=== PATIENT | female | born 1995 | race Caucasian/White ===

== ENCOUNTER 2021-06-19 10:12 | Inpatient (IN) | payer OTHER ==
[2021-06-19 13:45] VITALS: BMI 42.5
[2021-06-19] MEDS ORDERED: DINOPROSTONE 10 MG VAGINAL SUPPOSITORY VG ONE (15:00)
[2021-06-19] MEDS ORDERED: ELECTROLYTE-148 SOLN 1,000 ML IV ONE (21:00)
[2021-06-19] MEDS ORDERED: OXYTOCIN 30 UNITS in 0.9% NS 30 UNIT/500 ML INFUS.BAG IVPB SCH (23:15)
[2021-06-20] MEDS ORDERED: OXYTOCIN 30 UNITS in 0.9% NS 30 UNIT/500 ML INFUS.BAG IVPB ONE (06:01)
[2021-06-20] MEDS ORDERED: CITRIC ACID/SODIUM CITRATE 30 ML UNIT-DOSE CUP PO ONE (09:44)
[2021-06-20] MEDS ORDERED: ELECTROLYTE-148 SOLN 1,000 ML IV SCH (10:15)
[2021-06-20] MEDS ORDERED: ONDANSETRON 4 MG/2 ML VIAL IVPUSH PRN (14:36)
[2021-06-20] MEDS ORDERED: ACETAMINOPHEN INJECTION 100 ML IVPB ONE (15:15)
[2021-06-20] MEDS ORDERED: OXYTOCIN 20 UNITS in 0.9% NS 20 UNIT/1,000 ML INFUS.BAG IV ONE (15:15)
[2021-06-20] MEDS ORDERED: morphine SULFATE/PF 1 MG/2 ML (2cc Syringe - QUVA) ONE (15:16)
[2021-06-20] MEDS ORDERED: ceFAZolin SODIUM 1 GM VIAL ONE (15:16)
[2021-06-20] MEDS ORDERED: ePHEDrine SULFATE 50 MG/1 ML AMPULE ONE (15:16)
[2021-06-20] MEDS ORDERED: ONDANSETRON 4 MG/2 ML VIAL ONE (15:56)
[2021-06-20] MEDS ORDERED: METHYLERGONOVINE MALEATE 0.2 MG/1 ML AMP IM PRN (16:53)
[2021-06-20] MEDS ORDERED: IBUPROFEN 800 MG/8 ML IJ IVPB PRN (16:53)
[2021-06-20 16:54] LABS: CORD HCO3 21.3 mmHg (20-29); CORD pH 7.183 (7.14-7.44)
[2021-06-20 16:56] LABS: CORD BASE EXCESS -5.1 mmol/L (0-2); CORD HCO3 20.4 mmHg (20-29); CORD PCO2 39.7 mmHg (30-78); CORD pH 7.329 (7.14-7.44)
[2021-06-20] MEDS: OXYTOCIN 20 UNITS in 0.9% NS 20 UNIT/1,000 ML INFUS.BAG IV SCH (17:00)
[2021-06-21] MEDS ORDERED: DEXTROSE 5%-WATER - 50 ML IVPB ONE ×3 (01:29→15:08)
[2021-06-21] MEDS ORDERED: ceFAZolin SODIUM 1 GM VIAL ONE ×3 (01:29→15:08)
[2021-06-21] MEDS: CEFAZOLIN 1 GM in DEXTROSE 5%-WATER - 50 ML IVPB SCH ×3 (02:04→15:11)
[2021-06-21] MEDS ORDERED: oxyCODONE HCL 5 MG TABLET PO PRN ×2 (04:53)
[2021-06-21] MEDS: PRENATAL VITAMINS W/ FOLIC ACID TABLET (FP) PO SCH (09:23)
[2021-06-21] MEDS: ENOXAPARIN NA (PORCINE) 40 MG/0.4 ML DISP.SYRIN SQ SCH (09:24)
[2021-06-21 09:30] LABS: BASO % 0.3 % (0-2.0); EOS % 0.3 % (0-4.5); HEMATOCRIT 27.9 % (32.4-45.2); HEMOGLOBIN 9.5 GM/dL (10.7-15.3); LYMPH % 10.8 % (8-40); MCH 27.5 pg (25.7-33.7); MCHC 34.1 g/dl (32.0-36.0); MEAN CELL VOLUME 80.7 fl (80-96); MONO % 10.7 % (3.8-10.2); NEUT % 77.9 % (42.8-82.8); PLATELET COUNT 226 10^3/uL (134-434); RBC 3.46 M/mm3 (3.60-5.2); RDW 16.4 % (11.6-15.6); WHITE BLOOD COUNT 9.9 K/mm3 (4.0-10.0)
[2021-06-21] MEDS: SIMETHICONE 80 MG TAB.CHEW (FP) PO PRN ×2 (15:12→20:20)
[2021-06-21] MEDS: ACETAMINOPHEN 325 MG TABLET (FP) PO PRN ×2 (15:12→20:19)
[2021-06-21] MEDS ORDERED: BISACODYL 10 MG SUPP.RECT RC PRN (16:53)
[2021-06-21] MEDS: SENNOSIDES/DOCUSATE COMBO (SENNA PLUS) TABLET (UD) PO PRN (20:20)
[2021-06-21] MEDS: OXYTOCIN 20 UNITS in 0.9% NS 20 UNIT/1,000 ML INFUS.BAG IV SCH (20:55)
[2021-06-21] MEDS: FERROUS SO4 325 MG TABLET (FP) PO SCH (21:15)
[2021-06-22] MEDS: ENOXAPARIN NA (PORCINE) 40 MG/0.4 ML DISP.SYRIN SQ SCH (09:06)
[2021-06-22] MEDS: FERROUS SO4 325 MG TABLET (FP) PO SCH ×3 (09:06→23:19)
[2021-06-22] MEDS: IBUPROFEN 600 MG TABLET (FP) PO PRN (09:06)
[2021-06-22] MEDS: PRENATAL VITAMINS W/ FOLIC ACID TABLET (FP) PO SCH (09:06)
[2021-06-22] MEDS: SIMETHICONE 80 MG TAB.CHEW (FP) PO PRN ×2 (09:06→20:25)
[2021-06-22] MEDS: SENNOSIDES/DOCUSATE COMBO (SENNA PLUS) TABLET (UD) PO PRN (20:24)
[2021-06-22 20:43] VITALS: TEMP 98
[2021-06-23 08:09] LABS: BASO % 0.5 % (0-2.0); EOS % 2.8 % (0-4.5); HEMATOCRIT 27.9 % (32.4-45.2); HEMOGLOBIN 9.2 GM/dL (10.7-15.3); LYMPH % 16.5 % (8-40); MCH 26.8 pg (25.7-33.7); MCHC 32.8 g/dl (32.0-36.0); MEAN CELL VOLUME 81.5 fl (80-96); MEAN PLT VOLUME 8.5 fl (7.5-11.1); MONO % 9.4 % (3.8-10.2); NEUT % 70.8 % (42.8-82.8); PLATELET COUNT 287 10^3/uL (134-434); RBC 3.42 M/mm3 (3.60-5.2); RDW 16.2 % (11.6-15.6); WHITE BLOOD COUNT 8.7 K/mm3 (4.0-10.0)
[2021-06-23] MEDS: ENOXAPARIN NA (PORCINE) 40 MG/0.4 ML DISP.SYRIN SQ SCH (09:04)
[2021-06-23] MEDS: PRENATAL VITAMINS W/ FOLIC ACID TABLET (FP) PO SCH (09:04)
[2021-06-23] MEDS: IBUPROFEN 600 MG TABLET (FP) PO PRN (09:04)
[2021-06-23] MEDS: FERROUS SO4 325 MG TABLET (FP) PO SCH (09:04)
[2021-06-23] MEDS: SIMETHICONE 80 MG TAB.CHEW (FP) PO PRN (09:04)
[2021-06-23 10:34] VITALS: BP 108/66; PULSE 108
== END 2021-06-23 14:20 | disposition home or self-care (01) | DRG 540 ==
LOC: JLDR 10:12 → J3W 06-20 20:03
PROVIDERS: ADMIT Obstetrics & Gynecology; ATTEND Obstetrics & Gynecology
PROC: 3E0P7VZ Introduction of Hormone into Female Reproductive, Via Natural or Artificial Opening (ICD-10-PCS; 2021-06-19)
PROC: 10D00Z1 Extraction of Products of Conception, Low, Open Approach (ICD-10-PCS; principal; 2021-06-20)
DX: O61.0 Failed medical induction of labor (principal); O41.03X0 Oligohydramnios, third trimester, not applicable or unspecified; O99.214 Obesity complicating childbirth; Z3A.41 41 weeks gestation of pregnancy; Z37.0 Single live birth
CPT/HCPCS: 36415; 36600; 80048; 82803; 85025; 85610; 85730; 86780; 86850; 86900; 86901; 88307-TC; 94010; C9803; U0003; U0005